=== PATIENT | male | born 1940 | race Caucasian/White ===

== ENCOUNTER 2020-01-23 07:20 | Inpatient (IN) | payer MEDICARE, OTHER ==
[~2020-01-23] VITALS: Ht 170.2 cm; Wt 71.2 kg
[~2020-01-23 07:20] MED LIST: AUGMENTIN 875875 MG PO; BISACODYL SUPP10 MG RECTAL; CENTRUM SILVER1 EAC2 PO; CLEAR EYES COOL15 ML OP; COLACE100 MG PO; COUMADIN 1MG TAB1 M1 PO; COUMADIN 2.5MG2.5 M1 PO; COUMADIN 3 MG TA3 M1 PO; DICLOXACILLIN500 MG PO; FENOFIBRATE160 MG PO; GABAPENTIN 100100 MG PO; GENTEAL MILD TO25 ML OPHTHALMIC; HUMALOG100 UNIT/1 SUBQ; LANTUS100 UNIT/M SUBQ; LEXAPRO 10 MG T10 M1 PO; MILK OF MA400 MG/5 M PO; MIRALAX17 GM PO; Milk of Magnesia PO; NORCO 5-325 TA1 EACH PO; ONDANSETRON HCL4 M2 PO; PLAVIX 75 MG TA75 M1 PO; PRILOSEC20 MG PO; PROBIOTIC1 EAC1 PO; PROTONIX40 M1 PO; RAPAFLO8 MG PO; SALINE NASAL M126 ML NASAL; SENOKOT-S1 TA2 GT; SINEMET 25-1001 EAC1 PO; SYNTHROID50 MCG PO; TRAZODONE 150150 M1 PO; TYLENOL325 MG PO; VITAMIN D 5050000 I1 PO; XANAX 0.25 MG0.25 MG PO; ZOCOR20 MG PO; ZOFRAN4 MG PO
[2020-01-23 07:28] VITALS: BP 158/69
[2020-01-23 07:55] LABS: ABSOLUTE EOSINOPHILS 0.2 thou/uL (0.0-0.7); ABSOLUTE LYMPHOCYTES 1.2 thou/uL (0.8-5.3); ABSOLUTE MONOCYTES 0.3 thou/uL (0.0-1.2); ABSOLUTE NEUTROPHILS 1.7 thou/uL (1.6-8.1); EOSINOPHILS 5.9 %; HEMATOCRIT 33.1 % (42.0-52.0); HEMOGLOBIN 11.2 gm/dL (14.0-18.0); LYMPHOCYTES 33.7 %; MCH 31.3 pg (26.0-34.0); MCHC 33.9 g/dL (28.0-37.0); MCV 92.3 fL (80.0-100.0); MONOCYTES 9.7 %; MPV 11.8 fl. (7.2-11.1); NUCLEATED RBCS 0 /100WBC; PLATELET COUNT* 94 thou/uL (150-400); POLYS 49.7 %; RBC 3.59 mil/uL (4.50-6.00); RDW-CV 13.8 % (10.5-14.5); WBC 3.5 thou/uL (4.0-11.0)
[2020-01-23 08:03] LABS: CALCIUM 8.3 mg/dL (8.5-10.1); CREATININE 1.6 mg/dL (0.6-1.3)
[2020-01-23 08:07] LABS: ALBUMIN 3.5 g/dL (3.4-5.0); TOTAL BILIRUBIN 0.4 mg/dL (<0.1-1.0); TOTAL PROTEIN 6.8 g/dL (6.4-8.2)
[2020-01-23] MEDS ORDERED: FENOFIBRATE150 MG PO (08:13)
[2020-01-23] MEDS ORDERED: NEURONTIN 300M300 M2 PO (08:14)
[2020-01-23] MEDS ORDERED: VITAMIN D210 MCG PO (08:15)
[2020-01-23] MEDS ORDERED: THERA TEARS1 EACH OPHTHALMIC (08:15)
[2020-01-23] MEDS ORDERED: GLUCOSE4 GM PO (08:16)
[2020-01-23] MEDS ORDERED: MECLIZINE HCL25 M1 PO (08:17)
--- NOTE | 2020-01-23 09:02 | NUR ---
ALISSON NOTIFIED UPON PT RETURN FROM CT. PT CONNECTED TO O2 AND MONITOR
[2020-01-23 09:30] LABS: INR 2.6; PROTIME 25.9 Seconds (9.20-11.50)
[2020-01-23 11:09] VITALS: BP 124/77
--- NOTE | 2020-01-23 11:27 | EKG ---
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: EMMY : 1940 Requested By: Lizandro Carty Order Number: [id number] MD: Ed Butler Measurements Intervals [place] Rate: 55 P: 57 OH: 233 QRS: 22 QRSD: 99 T: 40 QT: 433 QTc: 415 Interpretive Statements Sinus bradycardia artifact noted Prolonged OH interval Minimal ST depression, inferior leads Baseline wander in lead(s) II,III,aVF Compared to ECG 11/21/2016 07:35:42 First degree AV block now present ST (T wave) deviation now present Electronically Signed On 01-23-2020 11:26:34 CDT by Ed Butler [email or web address] <ELECTRONICALLY SIGNED> By: Ed Butler MD, [facility] 01/23/20 1126 Ed Butler MD, [facility] /EPI
[2020-01-23 11:45] VITALS: BP 170/67
--- NOTE | 2020-01-23 15:23 | 2DMMODE ---
[place] [address] 2 D/M-MODE ECHOCARDIOGRAM Name: RADHAJAMAAL Room: [address] IN M.Marisel.#: [id number] Admission: 01/23/20 Attend Phys: Carlton rivero Sa Discharge: Date of : 36 Date of Service: 01/23/20 1522 Report #: [id number] THIS REPORT FOR: cc: Denys Beauchamp MD, Todd A. MD Blick,Ed Gordon MD [facility] ~ APPROVED REPORT Study performed: 01/23/2020 14:13:11 EXAM: Comprehensive 2D, Doppler, and color-flow Echocardiogram Patient Location: In-Patient BSA: 1.82 HR: 60 bpm BP: 124/77 mmHg Other Information Study Quality: Fair Indications CVA/TIA Weakness Echo Enhancing Agent Indication: Rule out Shunt Agent(s) / Amount(s) Used: Agitated Saline cc 2D Dimensions IVSd: 10.88 (7-11mm) LVOT Diam: 17.54 (18-24mm) LVDd: 43.87 mm PWd: 10.29 (7-11mm) Ascending Ao: 31.22 (22-36mm) LVDs: 29.89 (25-40mm) Aortic Root: 30.06 mm Volumes Left Atrial Volume (Systole) LA ESV Index: 27.50 mL/m2 Aortic Valve AoV Peak Danial.: 0.80 m/s AO Peak Gr.: 2.58 mmHg LVOT Max P.73 mmHg AO Mean Gr.: 1.48 mmHg LVOT Mean P.44 mmHg LVOT Max V: 0.83 m/[place] [address] 2 D/M-MODE ECHOCARDIOGRAM Name: JAMAAL GARCIA Room: [address]#: [id number] Admission: 01/23/20 Attend Phys: Carlton rivero Sa Discharge: Date of : 36 Date of Service: 01/23/20 1522 Report #: [id number] AO V2 VTI: 17.88 cm LVOT Mean V: 0.56 m/s CARLY (VTI): 2.76 cm2 LVOT V1 VTI: 20.43 cm Mitral Valve E/A Ratio: 0.85 MV Decel. Time: 364.66 ms MV E Max Danial.: 1.09 m/s MV PHT: 105.75 ms MVA (PHT): 2.08 cm2 TDI E/Lateral E': 15.57 E/Medial E': 15.57 Medial E' Danial.: 0.07 m/s Lateral E' Danial.: 0.07 m/s Pulmonary Valve PV Peak Danial.: 1.04 m/s PV Peak Gr.: 4.33 mmHg Tricuspid Valve RAP Estimate: 5.00 mmHg TR Peak Gr.: 29.27 mmHg RVSP: 34.27 mmHg PA Pressure: 34.27 mmHg Left Ventricle The left ventricle is normal size. There is normal LV segmental wall motion. There is normal left ventricular wall thickness. Left ventricular systolic function is normal. The left ventricular ejection fraction is within the normal range. LVEF is 50-55%. Grade I - abnormal relaxation pattern. Right Ventricle The right ventricle is normal size. The right ventricular systolic function is normal. Atria The left atrium size is normal. Injection of bubbles documented no interatrial shunt. The right atrium size is normal. Aortic Valve The Aortic valve is sclerotic. No aortic regurgitation is present. There is no aortic valvular stenosis. Mitral Valve There is mitral annular calcification. The mitral valve is normal in structure. Trace mitral regurgitation. No evidence of mitral [place] [address] 2 D/M-MODE ECHOCARDIOGRAM Name: JAMAAL GARCIA Timmy Room: [address] IN [facility]#: [id number] Admission: 01/23/20 Attend Phys: Carlton rivero Sa Discharge: Date of : 36 Date of Service: 01/23/20 1522 Report #: [id number] Tricuspid Valve The tricuspid valve is normal in structure. Trace tricuspid regurgitation. estimated pa pressure 35 mm Hg Pulmonic Valve Pulmonic valve is not well visualized. There is no pulmonic valvular regurgitation. Great Vessels The aortic root is normal in size. IVC is normal in size and collapses >50% with inspiration. Pericardium There is no pericardial effusion. <Conclusion> LVEF is 50-55%. The Aortic valve is sclerotic. Injection of bubbles documented no interatrial shunt. <ELECTRONICALLY SIGNED> By: Ed Butler MD, FACC 01/23/20 1522 1522 1522 Ed Butler MD, FACC /INF
--- NOTE | 2020-01-23 16:24 | CON ---
[address] [address] CONSULTATION Name: RADHAAYDENTimmy Warner Room: [address] IN M.R.#: [id number] Admission: 01/23/20 Attend Phys: Carlton Henry Discharge: Date of : 36 Report #: [id number] THIS REPORT FOR: //name// cc: Denys eBauchamp MD, Todd A. MD ~ THIS REPORT FOR: //name// CC: Carlton Harley DATE OF SERVICE: 01/23/2020 CARDIOLOGY CONSULTATION HISTORY OF PRESENT ILLNESS: The patient is an 79-year-old single white male whom I was asked to see in the hospital today after he had an episode of aphasia. The patient has a long history of diabetes and hyperlipidemia. He has a long history of PAD with previous bilateral stents in his lower extremity. Because of nonhealing ulcer, he has had toes removed from both legs. He is not very active at this time. He has been in assisted living for 4 years. He uses a walker. He denies a history of heart disease. He apparently had a stress test years ago, but denies a history of chest pain, shortness of breath, palpitations, syncope. He was doing well until yesterday. He apparently had slurred speech. Denied any paralysis of an arm or leg, blurred vision. He has a long history of poor balance. PAST MEDICAL HISTORY: Significant for diabetes, hyperlipidemia, hypothyroidism. CURRENT MEDICATIONS: Includes Neurontin, fenofibrate, meclizine, Synthroid, trazodone, insulin, Sinemet, Zocor. He is on warfarin, Protonix. ALLERGIES: HE HAS PREVIOUS INTOLERANCE TO HYDROCODONE, PLAVIX, AMOXICILLIN. FAMILY HISTORY: His father had heart attack. SOCIAL HISTORY: He is , lives in assisted living. No smoking or alcohol abuse. [facility] He is retired from [employer]. REVIEW OF SYSTEMS: No history of stroke, asthma, liver disease, kidney disease, cancer, psychiatric illness, chronic skin condition. PHYSICAL EXAMINATION: GENERAL: Revealed an elderly male, lying in bed, appeared in no distress. VITAL SIGNS: He had a blood pressure of 120/70, pulse is 60. He is afebrile. HEENT: He was anicteric. Conjunctivae are pink. [place] [address] CONSULTATION Name: JAMAAL GARCIA Timmy Room: [address]#: [id number] Admission: 01/23/20 Attend Phys: Carlton rivero [place] Discharge: Date of : 38 Report #: [id number] NECK: Veins nondistended. No carotid bruits. CHEST: Clear to auscultation. CARDIOVASCULAR: Regular rate and rhythm. No murmurs. ABDOMEN: Soft. EXTREMITIES: Had no edema. Dorsalis pedis pulse cannot be palpated. SKIN: Cool and dry. NEUROLOGIC: Nonfocal. DIAGNOSTIC DATA: ECG done this morning showed sinus bradycardia, first-degree AV block, no significant ST or T-wave change. His workup included a chest x-ray that showed normal heart size, clear lung navarro. CT scan of the head was performed without contrast that shows cerebral atrophy, small vessel ischemic changes, no acute abnormalities. LABORATORY DATA: Sodium 141, BUN 25, creatinine 1.6. His troponin 0.2. TSH 4.6. INR was 2.6 on admission, white blood cell count 3.5, hematocrit 33.1. IMPRESSION AND RECOMMENDATIONS: 1. Borderline elevation of troponin. There were no ECG changes or complaints of angina. Suspect non-myocardial infarction related borderline elevation of troponin. Recommend no further cardiac evaluation. 2. Aphasia. The patient is being seen by Neurology. 3. Peripheral arterial disease. Previous stents. The patient is on warfarin. 4. Diabetes. 5. Hyperlipidemia. The patient is on a statin drug. 6. Chronic kidney disease. <ELECTRONICALLY SIGNED> By: Ed Butler MD, [facility] 01/23/20 1624 1345 1403David Heidi Butler MD, FACC /nt
--- NOTE | 2020-01-23 16:26 | NUR ---
PATIENT ARRIVED TO ROOM 229 PER CART THIS LATE IN THE AM. PATIENT IS ALERT AND ORIENTED X 4 ON ARRIVAL. PATIENT PLACED ON TELE MONITOR. VS OBTAINED. PATIENT ORIENTED TO ROOM AND PROCEDURES. NIH PERFORMED AND PATIENT'S SCORE WAS 0. PATIENT ASSISTED WITH ADLS. PATIENT TAKEN TO RADIOLOGY PER THIS AFTERNOON FOR MRI.
[2020-01-23] MEDS ORDERED: COUMADIN 4 MG TA4 M1 PO (18:17)
[2020-01-23 20:00] VITALS: BP 177/57
[2020-01-24] VITALS: BP 151/56
[2020-01-24 04:36] VITALS: BP 116/53
--- NOTE | 2020-01-24 06:36 | NUR ---
ASSUMED PT CARE AT APPROX 1930. PT IS AWAKE AND ORIENTED X4. PT IS TRACING SB ON THE RESIDENTIAL CONSTRUCTION INSTRUCTOR. ASSESSMENT DONE AND CHARTED. PT DENIES PAIN/DISCOMFORT. NIHSS-0. NO ACUTE CHANGES OVERNIGHT. HIGH FALL PRECAUTIONS IN PLACE. CALL LIGHT WITHIN REACH. HOURLY ROUNDING DONE FOR PT SAFETY.
[2020-01-24 07:20] VITALS: BP 146/52
[2020-01-24 07:32] LABS: CHOLESTEROL 111 mg/dL (<200); HDL CHOLESTEROL 37 mg/dL (>40); LDL CHOLESTEROL 48 mg/dL (<100); TRIGLYCERIDE 130 mg/dL (<150); VLDL 26 mg/dL (<40)
[2020-01-24 07:34] LABS: SERUM ASSESSMENT Clear
[2020-01-24 07:35] LABS: INR 2.3; PROTIME 23.3 Seconds (9.20-11.50)
[2020-01-24 12:00] VITALS: BP 136/60
[2020-01-24 14:02] VITALS: BP 136/60
--- NOTE | 2020-01-24 14:15 | NUR ---
PT.TO BE DISCHARGED TODAY. MRI NEG. HE LIVES AT ASSISTED LIVING AT THE [facility]. HE SAID HE USES A CANE. HE GOES TO THE DINING ROOM FOR MEALS. CM CALLED TOMASZ/THE [facility]. SHE WILL ARRANGE SOMEONE TO PICK PT UP IN ABOUT 30 MIN. TOLD HER HE WILL NEED HIS WALKER. SHE SAID THEY WILL GET IT FROM HIS APT. SPOKE WITH YARY/NURSE AT THE [facility], REQUESTING HOSPITAL STAY INFORMAITON AND MEDICATION LIST. FAXED HER FACE SHEET,H&P,NEURO CONSULT,DISCHARGE SUMMARY,MED LIST,ALL MRI AND CAROTID DOPPLER RESULTS TO [phone]. TESHA MILLIGAN NOTIFIED.
[2020-01-25 02:07] LABS: GLYCOHEMOGLOBIN (HGB A1C) 6.7 % (4.8-5.6)
--- NOTE | 2020-02-01 12:39 | CON ---
[address] [address] CONSULTATION Name: RADHAAYDENTimmy Warner Room: [address] IN M.R.#: [id number] Admission: 01/23/20 Attend Phys: Carlton Henry Discharge: 01/24/20 Date of : 36 Report #: [id number] THIS REPORT FOR: //name// cc: Denys Beauchamp MD, Todd A. MD ~ THIS REPORT FOR: //name// CC: Carlton Nelson DATE OF SERVICE: 01/23/2020 HISTORY OF PRESENT ILLNESS: This is an 79-year-old male patient who was seen by me for the possibility of stroke versus TIA. The patient was noticed to have some speech difficulty. There was some question of weakness on the right side. The patient's symptoms subsequently resolved. The patient was outside the window for any TPA. The patient is also on Coumadin with therapeutic INR. REVIEW OF SYSTEMS: Indicate the patient is a diabetic. It looks like his blood sugar was normal when it happens. He does have a history of vascular insufficiency. He had the amputations of his toes. He also had stents put in his lower extremity. He denies any prior history of stroke. He said he has Parkinson's disease, but his history is not very clear in that regard. He indicated that he did not see any neurologist, but he has been on carbidopa/levodopa from the place where he resides. His memory is not too bad, but he walks with a walker and has done it for some time. That was his relevant 14-point review of system. PAST MEDICAL HISTORY: Negative for any stroke. FAMILY HISTORY: Also negative for any stroke. SOCIAL HISTORY: The patient does not smoke or drink any alcohol. PHYSICAL EXAMINATION: Indicate the patient is alert, responsive, able to follow simple and complex command. His memory is reasonable for the patient's age. His cranial nerve examination 2-12 looks unremarkable. He does have an amputation, but otherwise neuromuscular examination looks symmetrical. His reflexes does appear to be present. There is no meningeal sign. There is no cerebellar sign. I could not look at the fundus. His pulses are also difficult to feel. His blood pressure is 124/77, respirations 14, and pulse is 60. LABORATORY DATA: Indicate a white count of 3.5 and INR of 2.6. He did have a CT scan of the head, which appear unremarkable. He [place] [address] CONSULTATION Name: JAMAAL GARCIA Timmy Room: [address]#: [id number] Admission: 01/23/20 Attend Phys: Carlton Henry Discharge: 01/24/20 Date of : 38 Report #: [id number] IMPRESSION: This patient does appear to have either TIA or stroke. He had right-sided symptoms even about 2 weeks ago, which were nonspecific. He needs further workup. He has no contraindication for MRI. So, I discussed with him that we will go ahead and proceed with an MRI and see if it demonstrate any stroke. He does have a history of Parkinson's disease. I am not sure how established the diagnosis is in this patient. He does not have much tremor on my examination, but you may not have any tremor if the person is on Sinemet. I told him we will not address that question for the time being. He can come as an outpatient if that need to be addressed. He does have some other abnormalities like his WBC count is low and his platelet count is low. I will defer to the admitting doctor if anything need to be done in that regard. Time spent about 50 minutes, majority counseling and coordinating. We will await this workup. I will also get an echocardiogram done in this patient. <ELECTRONICALLY SIGNED> By: Al Joshi MD 02/01/20 1239 1313 1332Phermelindo Joshi MD /nt
== END 2020-01-24 15:18 | disposition home or self-care (01) | DRG 69 ==
LOC: M.ERS 07:20 → M.2W 09:17 → M.TBA-ER 09:17 → M.2W 12:36
PROVIDERS: Family Medicine; Internal Medicine Cardiovascular Disease; ADMIT Family Medicine; ATTEND Family Medicine
DX: G45.9 Transient cerebral ischemic attack, unspecified (principal); N17.9 Acute kidney failure, unspecified; D61.818 Other pancytopenia; R47.01 Aphasia; E11.40 Type 2 diabetes mellitus with diabetic neuropathy, unspecified; G20 Parkinson's disease; E11.22 Type 2 diabetes mellitus with diabetic chronic kidney disease; E78.5 Hyperlipidemia, unspecified; N18.9 Chronic kidney disease, unspecified; E11.51 Type 2 diabetes mellitus with diabetic peripheral angiopathy without gangrene; E03.9 Hypothyroidism, unspecified; Z79.01 Long term (current) use of anticoagulants; Z79.4 Long term (current) use of insulin; Z79.899 Other long term (current) drug therapy; Z91.048 Other nonmedicinal substance allergy status; Z86.718 Personal history of other venous thrombosis and embolism; Z82.49 Family history of ischemic heart disease and other diseases of the circulatory system; Z83.3 Family history of diabetes mellitus; Z82.3 Family history of stroke

== ENCOUNTER 2021-02-24 19:39 | Emergency (ER) | payer MEDICARE, OTHER ==
[~2021-02-24] VITALS: Ht 170.2 cm; Wt 72.2 kg
[~2021-02-24 19:39] MED LIST changes: +COUMADIN 4 MG TA4 M1 PO; +FENOFIBRATE150 MG PO; +GLUCOSE4 GM PO; +MECLIZINE HCL25 M1 PO; +NEURONTIN 300M300 M2 PO; +THERA TEARS1 EACH OPHTHALMIC; +VITAMIN D210 MCG PO
[2021-02-24] MEDS ORDERED: XARELTO15 MG PO (20:15)
[2021-02-24] MEDS ORDERED: TUMS200 MG PO (20:16)
[2021-02-24] MEDS ORDERED: SIMETHICON CHEW80 M1 PO (20:17)
[2021-02-24 22:25] VITALS: BP 197/84
== END 2021-02-24 22:26 | disposition home or self-care (01) ==
LOC: M.ERS 19:39
DX: S01.01XA Laceration without foreign body of scalp, initial encounter (principal); E03.9 Hypothyroidism, unspecified; Z88.8 Allergy status to other drugs, medicaments and biological substances; Z79.84 Long term (current) use of oral hypoglycemic drugs; Z79.899 Other long term (current) drug therapy; X50.1XXA Overexertion from prolonged static or awkward postures, initial encounter; Y93.89 Activity, other specified; Y92.89 Other specified places as the place of occurrence of the external cause; Y99.8 Other external cause status

== ENCOUNTER 2021-04-13 07:39 | Inpatient (IN) | payer MEDICARE, OTHER ==
[~2021-04-13] VITALS: Ht 152.4 cm; Wt 74.4 kg
[~2021-04-13 07:39] MED LIST changes: +SIMETHICON CHEW80 M1 PO; +TUMS200 MG PO; +XARELTO15 MG PO
[2021-04-13 07:44] VITALS: BP 123/75
[2021-04-13] MEDS ORDERED: DORYX MPC120 MG PO (08:09)
[2021-04-13] MEDS ORDERED: PROSCAR 5MG TABL5 MG PO (08:10)
[2021-04-13] MEDS ORDERED: ACID CONTROLLER20 MG PO (08:10)
[2021-04-13] MEDS ORDERED: HYDROCODON-ACE1 EAC7 PO (08:11)
[2021-04-13] MEDS ORDERED: DESYREL150 MG PO (08:12)
[2021-04-13 08:15] LABS: ABSOLUTE BASOPHILS 0.1 thou/uL (0.0-0.2); ABSOLUTE LYMPHOCYTES 1.3 thou/uL (0.8-5.3); ABSOLUTE MONOCYTES 0.6 thou/uL (0.0-1.2); ABSOLUTE NEUTROPHILS 7.2 thou/uL (1.6-8.1); BASOPHILS 0.6 %; EOSINOPHILS 0.2 %; HEMATOCRIT 29.9 % (42.0-52.0); HEMOGLOBIN 9.8 gm/dL (14.0-18.0); LYMPHOCYTES 13.7 %; MCH 30.5 pg (26.0-34.0); MCHC 32.7 g/dL (28.0-37.0); MCV 93.3 fL (80.0-100.0); MONOCYTES 6.9 %; MPV 12.4 fl. (7.2-11.1); NUCLEATED RBCS 0 /100WBC; PLATELET COUNT* 138 thou/uL (150-400); POLYS 78.6 %; RDW-CV 14.5 % (10.5-14.5); WBC 9.2 thou/uL (4.0-11.0)
[2021-04-13 08:20] LABS: CALCIUM 7.9 mg/dL (8.5-10.1); CREATININE 3.7 mg/dL (0.6-1.3)
[2021-04-13 08:34] LABS: ALBUMIN 3.3 g/dL (3.4-5.0); TOTAL BILIRUBIN 0.4 mg/dL (<0.1-1.0); TOTAL PROTEIN 6.4 g/dL (6.4-8.2)
[2021-04-13 09:30] VITALS: BP 127/80
[2021-04-13 10:55] LABS: CALCIUM 7.9 mg/dL (8.5-10.1); CREATININE 3.6 mg/dL (0.6-1.3); POTASSIUM 5.2 mmol/L (3.5-5.1)
[2021-04-13 11:14] LABS: INR 1.3; PROTIME 13.3 Seconds (9.20-11.50)
[2021-04-13 12:00] VITALS: BP 125/86
[2021-04-13] MEDS ORDERED: CARBIDOPA-LEVO1 EAC9 PO (14:00)
--- NOTE | 2021-04-13 14:26 | EKG ---
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: LINDA : 1940 Requested By: Lizandro Carty Order Number: [id number] MD: Oleg Munoz Measurements Intervals [place] Rate: 40 P: 0 RI: 188 QRS: 58 QRSD: 91 T: 117 QT: 502 QTc: 410 Interpretive Statements Sinus node dysfunction Junctional escape atrial premature complex Borderline repolarization abnormality Compared to ECG 01/23/2020 07:32:06 Atrial premature complex(es) now present First degree AV block no longer present ST (T wave) deviation no longer present Electronically Signed On 04-13-2021 14:25:50 CDT by Oleg Munoz [email or web address] <ELECTRONICALLY SIGNED> By: Oleg Munoz MD, [facility] 04/13/21 1425 1 Oleg Munoz MD, [facility] /EPI
[2021-04-13 16:00] VITALS: BP 181/78
[2021-04-14] VITALS (7 sets, daily range): BP systolic 111–153; BP diastolic 40–63
--- NOTE | 2021-04-14 00:18 | NUR ---
PT ALERT ORIENTED. FUSSY AT TIMES. INITAL ASSESSMENT PT UNABLE TO VOID. PT STOOD, WATER RAN. PT BLADDER SCANNED. SHOWED 550ML. DR NOTIFIED. ORDER TO STRAIGHT CATH WITH 500 ML RETURN OF CLEAR YELLOW. SALES MANAGEMENT INTERN TRACING PACED. L ARM SLING PLACED ON PT. PT TEACHING RE NOT RAISING L ARM. L CHEST INSERTION SITE ANEESH C/D/I.
[2021-04-14 03:51] LABS: HEMATOCRIT 27.7 % (42.0-52.0); HEMOGLOBIN 8.9 gm/dL (14.0-18.0); MCH 29.8 pg (26.0-34.0); MCHC 32.2 g/dL (28.0-37.0); MCV 92.4 fL (80.0-100.0); MPV 11.7 fl. (7.2-11.1); RDW-CV 14.9 % (10.5-14.5); WBC 7.9 thou/uL (4.0-11.0)
[2021-04-14 04:08] LABS: CALCIUM 7.8 mg/dL (8.5-10.1); CREATININE 2.7 mg/dL (0.6-1.3); POTASSIUM 4.6 mmol/L (3.5-5.1)
--- NOTE | 2021-04-14 05:43 | NUR ---
A SECOND ATTEMPT WAS MADE TO TRY TO GET PT TO VOID. BLADDER SCAN 565ML. STRAIGHT CATH 675ML.
--- NOTE | 2021-04-14 11:34 | CON ---
[address] [address] CONSULTATION Name: JAMAAL GARCIA Room: [address] IN M.R.#: [id number] Admission: 04/13/21 Attend Phys: Radha Reynolds Discharge: Date of : 38 Report #: [id number] THIS REPORT FOR: cc: Denys Beauchamp MD, Todd A. MD Liston, Michael J. MD FAC ~ cc: Denys Beauchamp MD DATE OF CONSULTATION: 04/13/2021 CARDIOLOGY CONSULT INDICATION: Heart block. HISTORY OF PRESENT ILLNESS: The patient is a very pleasant 80-year-old gentleman who was noted to have bradycardia this morning by his childcare aide. An EKG shows what appears to be sick sinus syndrome with very slow sinus node rate and underlying junctional escape with heart rates in the low 30s. The patient has weakness and lightheadedness and dizziness. He is not having chest pain. He is without other cardiac complaint. He has no prior cardiac history. He does have a history of peripheral vascular disease with previous stenting to his lower extremities and some toe amputations due to nonhealing ulcers remotely. He is not having any problems with this at present. He is chronically anticoagulated. PAST MEDICAL HISTORY: Hyperlipidemia, type 2 diabetes mellitus, peripheral vascular disease, hypothyroidism, peripheral neuropathy, history of DVT. HOME MEDICATIONS: Tylenol p.r.n., Sinemet 25/100 t.i.d., Artificial Tears daily, Colace 100 mg b.i.d., doxycycline 100 mg daily, vitamin D2 50,000 units weekly, Pepcid 20 mg daily, fenofibrate 145 mg daily, Proscar 5 mg daily, gabapentin 300 mg at bedtime, hydrocodone/acetaminophen p.r.n., Lantus 14 units subQ daily, Synthroid 75 mcg daily, Antivert 25 mg q. 6 hours, Centrum Silver tablet 1 daily, Protonix 40 mg daily, MiraLax 17 grams daily, Xarelto 15 mg at dinnertime, Senokot-S 2 tablets at bedtime, Rapaflo 8 mg daily, simethicone 80 mg every evening, simvastatin 20 mg at bedtime, trazodone 150 mg at bedtime. ALLERGIES: LANOLIN, ALCOHOL, NEOMYCIN, FORMALDEHYDE. SOCIAL HISTORY: The patient resides in [facility] care. There is no alcohol or tobacco use. FAMILY HISTORY: Noncontributory. PHYSICAL EXAMINATION: [place] [address] CONSULTATION Name: JAMAAL GARCIA Room: [address]#: [id number] Admission: 04/13/21 Attend Phys: Radha Reynolds Discharge: Date of : 38 Report #: [id number] VITAL SIGNS: Blood pressure 127/80, pulse is in the low 30s. GENERAL: This is a pleasant elderly male who is in no distress. Mood and affect appropriate. HEENT: The patient is wearing glasses. Extraocular muscles intact. Mucous membranes moist. NECK: Shows no jugular venous distention. CHEST: Reveals clear lung navarro. CARDIAC: Reveals bradycardia without obvious gallop or murmur. ABDOMEN: Reveals normal bowel sounds. The abdomen is soft and nontender. EXTREMITIES: Show no edema. DIAGNOSTIC DATA: A 12-lead EKG shows what appears to be a sick sinus with a junctional escape in the 30s. LABORATORY DATA: Reviewed. Sodium 138, potassium 6.0, chloride 105, bicarb 19, BUN 46, creatinine 3.7, serum glucose 336. LFTs within normal limits. Troponin high sensitivity 2146. NT-proBNP 3719. White blood cell count 9.2, hemoglobin 9.8, platelet count 138,000. Chest x-ray: No acute radiographic abnormality. IMPRESSION AND RECOMMENDATIONS: 1. Sick sinus node with profound bradycardia with symptoms of fatigue, lightheadedness and dizziness. Plan, permanent pacemaker placement. 2. Peripheral vascular disease, presently stable. 3. Dyslipidemia. Continue current statin agent. Check fasting lipid profile. 4. Acute renal failure likely due to hypoperfusion from bradycardia. Hopefully, will improve with improved heart rate. 5. Hyperkalemia. Corrective measures have been performed including D50 and insulin. Followup labs pending. 6. Acute on chronic diastolic heart failure. Should improve with improved heart rate after pacemeker placement. <ELECTRONICALLY SIGNED> By: Oleg Munoz MD, FACC 04/14/21 1134 0913 0926Micbrittney Munoz MD, FACC /nt
--- NOTE | 2021-04-14 15:41 | CARD ---
[address] [place] [address] [address] CARDIAC CATH REPORT Name: JAMAAL GARCIA Timmy Room: [address] IN [facility]#: [id number] Admission: 04/13/21 Attend Phys: Radha Reynolds Discharge: Date of : 38 Report #: [id number] THIS REPORT FOR: cc: Denys Beauchamp MD, Todd A. MD Liston, Michael J. MD [facility] ~ APPROVED REPORT Study performed: 04/13/2021 11:17:16 Patient Status: In-Patient Room #: Event Personnel: Ruthy Mcmillan RN RN, Rosalba Verduzco, Keaton Christianson RTR Scrub, Oleg Munoz Parts Clerk Plant Maintenance Exam: Insertion of Dual Chamber Permanent Pacemaker The patient is a 80 year-old male with a history of . Conscious Sedation Start time: 1209 End Time: 1241 Fentanyl 25 mcg Versed 1 mg Implanted Devices: Biotronik Edora 8 DRT, model #836877, serial #[id number] dual-chamber pulse generator. Biotronik Solia S 53, model #418634, serial #[id number] ventricularly. Biotronik Solia S 60, model #404376, serial #[id number] atrial lead. Procedure The patient underwent informed consent. We discussed the details of the procedure including the risks, which include, but not limited to bleeding, infection, vascular damage, cardiac perforation, and pneumothorax. He understood these risks and was willing to proceed. As such, he was brought to the EP/Cardiac Catheterization laboratory in a fasting and sedated state and prepped and draped in a sterile fashion, received IV antibiotics prior to initiation of the procedure and a venogram was performed showing patency of the left axillary vein. The patient underwent conscious sedation, with no related complications. The patient was brought to the EP/Cardiac Catheterization laboratory and the left chest and shoulder were prepped and draped in a sterile manner. During this case, Fluoroscopy [place] [address] CARDIAC CATH REPORT Name: RADHAJAMAAL Room: [address]#: [id number] Admission: 04/13/21 Attend Phys: Radha Reynolds Discharge: Date of : 38 Report #: [id number] imaging. IV conscious sedation was used throughout procedure with appropriate monitoring and was performed in the presence of a registered nurse who was an independent trained observer other than the physician performing the procedure. The left subclavian region was infiltrated with 2% Lidocaine subcutaneous anesthesia. A transverse incision was made in the left upper chest cavity. The subcutaneous pocket was formed via blunt dissection. Percutaneous venous access was achieved and an introducer sheath was inserted into the left Subclavian vein. Sheaths were positions using the modified Seldinger technique Through the introducer sheaths the atrial and ventricular lead wires were positioned in the right atrial appendage and right ventricular apex respectively. Utilizing fluoroscopic guidance, the atrial and ventricular lead wires were advanced over the wires and positioned in the right atria and right ventricle respectively. Capturing and sensing thresholds were verified. Electrode Parameters P Wave: 0.8 mV R Wave: 10.1 mV Atrial Threshold: 1 V at 0.40 ms Ventricular Threshold: 1 V at 0.40 ms Atrial Resistance: 485 ohms Ventricular Resistance: 569 ohms Dual Chamber The atrial and ventricular leads were then secured using 0 silk sutures. The subcutaneous pocket was irrigated with ancef antibiotic solution.The atrial and ventricular leads were attached to the appropriate receptacles on the pulse generator and set screws firmly tightened to insure adequate contact and stability. The lead and pulse generator were placed into the subcutaneous pocket. Sharp and sponge counts were confirmed to be correct. At this time the pocket was closed subcutaneously with a 2.0 Vicryl and the skin was closed with a 4.0 Vicryl. The operative site was dressed in sterile fashion with steri strips and the patient was transferred to the floor in stable condition. Complications The patient tolerated the procedure well and there were no complications [place] [address] CARDIAC CATH REPORT Name: JAMAAL GARCIA Room: [address]#: [id number] Admission: 04/13/21 Attend Phys: Radha Reynolds Discharge: Date of : 38 Report #: [id number] Findings Specimens Removed: No Estimated Blood Loss: 0 Conclusion 1. Sinus node dysfunction with symptomatic bradycardia. 2. Successful placement of a dual-chamber pacemaker with atrial and ventricular lead placement. Recommendations 1. Follow-up site check in 1 week. 2. Follow-up device interrogation in 1 month. <ELECTRONICALLY SIGNED> By: Oleg Munoz MD, FACC 04/14/21 1540 [id number] Munoz MD, FACC /INF
--- NOTE | 2021-04-14 15:43 | EKG ---
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: [place] : 1940 Requested By: Oleg Munoz Order Number: [id number] Reading MD: Oleg Munoz Measurements Intervals [place] Rate: 67 P: 0 LA: 162 QRS: -65 QRSD: 116 T: 83 QT: 419 QTc: 443 Interpretive Statements Atrial-ventricular dual-paced rhythm No further analysis attempted due to paced rhythm Compared to ECG 04/13/2021 07:42:28 Atrial premature complex(es) no longer present Electronically Signed On 04-14-2021 15:43:21 CDT by Oleg Munoz [email or web address] <ELECTRONICALLY SIGNED> By: Oleg Munoz MD, FACC 04/14/21 1543 1006 1006 Oleg Munoz MD, FAC /EPI
[2021-04-15] VITALS: BP 120/48
[2021-04-15 04:22] VITALS: BP 121/53
[2021-04-15 04:44] LABS: CHOLESTEROL 67 mg/dL (<200); HDL CHOLESTEROL 28 mg/dL (>40); LDL CHOLESTEROL 15 mg/dL (<100); TC:HDL 2.4 Ratio (Not establshd); TRIGLYCERIDE 124 mg/dL (<150); VLDL 25 mg/dL (<40)
[2021-04-15 04:45] LABS: SERUM ASSESSMENT CLEAR
--- NOTE | 2021-04-15 05:56 | NUR ---
ASSUMED CARE OF PT AFTER REPORT AT 1930. PT A&OX4. VSS. PHYICAL ASSESSMENT COMPLETED AND CHARTED. PT ON RA. PT TRACING SR/1ST DEG/BBB/AV PACED ON TELE. PT UP WITH 1 ASSIST TO RESTROOM. PT DENIES ANY PAIN. PT ABLE TO SLEEP WELL ON BED. FALL PRECAUTIONS IN PLACE. CALL LIGHT WITHIN REACH.
[2021-04-15 09:00] VITALS: BP 130/57
[2021-04-15 13:49] VITALS: BP 130/57
--- NOTE | 2021-04-15 15:41 | NUR ---
PT. AOX4, VSS, L [facility] SITE CDI, MINI, NO DRAINAGE NOTED. CALL LIGHT AND PERSONAL BELONGINGS PLACED WITHIN REACH. DC ORDERS RECEIVED. DC PACKET PROVIDED TO PT AND EXPLAINED TO PT AND DAUGHTER, BOTHE VERBALIZED UNDERSTANDING. REPORT CALLED TO LAWANDA PARKINSON OF [facility]. PT. LEFT BY WHEELCHAIR, IN STABLE CONDITION AND PICKED UP BY DAUGHTER FROM ER.
== END 2021-04-15 14:45 | disposition home or self-care (01) | DRG 242 ==
LOC: M.ERS 07:39 → M.2W 08:20 → M.TBA-ER 08:20 → M.2W 09:37
PROVIDERS: Family Medicine; Internal Medicine Cardiovascular Disease; ADMIT Internal Medicine; ATTEND Internal Medicine
PROC: 0JH606Z Insertion of Pacemaker, Dual Chamber into Chest Subcutaneous Tissue and Fascia, Open Approach (ICD-10-PCS; principal; 2021-04-13)
PROC: B51N1ZZ Fluoroscopy of Left Upper Extremity Veins using Low Osmolar Contrast (ICD-10-PCS; principal; 2021-04-13)
PROC: 02H63JZ Insertion of Pacemaker Lead into Right Atrium, Percutaneous Approach (ICD-10-PCS; principal; 2021-04-13)
PROC: 02HK3JZ Insertion of Pacemaker Lead into Right Ventricle, Percutaneous Approach (ICD-10-PCS; principal; 2021-04-13)
DX: I49.5 Sick sinus syndrome (principal); N17.0 Acute kidney failure with tubular necrosis; I21.4 Non-ST elevation (NSTEMI) myocardial infarction; I50.33 Acute on chronic diastolic (congestive) heart failure; I44.2 Atrioventricular block, complete; Z20.822 Contact with and (suspected) exposure to COVID-19; E03.9 Hypothyroidism, unspecified; E87.5 Hyperkalemia; E78.5 Hyperlipidemia, unspecified; E11.51 Type 2 diabetes mellitus with diabetic peripheral angiopathy without gangrene; E11.42 Type 2 diabetes mellitus with diabetic polyneuropathy; N40.0 Benign prostatic hyperplasia without lower urinary tract symptoms; Z95.820 Peripheral vascular angioplasty status with implants and grafts; Z88.1 Allergy status to other antibiotic agents; Z88.8 Allergy status to other drugs, medicaments and biological substances; Z86.718 Personal history of other venous thrombosis and embolism

== ENCOUNTER → 2021-04-18 | Outpatient (CLI) | payer MEDICARE, OTHER ==
[~2021-04-18] MED LIST changes: +ACID CONTROLLER20 MG PO; +CARBIDOPA-LEVO1 EAC9 PO; +DESYREL150 MG PO; +DORYX MPC120 MG PO; +HYDROCODON-ACE1 EAC7 PO; +PROSCAR 5MG TABL5 MG PO
[2021-04-18 15:26] LABS: ABSOLUTE BASOPHILS 0.1 thou/uL (0.0-0.2); ABSOLUTE EOSINOPHILS 0.2 thou/uL (0.0-0.7); ABSOLUTE LYMPHOCYTES 0.9 thou/uL (0.8-5.3); ABSOLUTE MONOCYTES 0.5 thou/uL (0.0-1.2); ABSOLUTE NEUTROPHILS 3.7 thou/uL (1.6-8.1); EOSINOPHILS 4.2 %; HEMATOCRIT 27.6 % (42.0-52.0); HEMOGLOBIN 9.2 gm/dL (14.0-18.0); LYMPHOCYTES 16.3 %; MCH 30.6 pg (26.0-34.0); MCHC 33.5 g/dL (28.0-37.0); MCV 91.3 fL (80.0-100.0); MONOCYTES 9.7 %; MPV 9.4 fl. (7.2-11.1); NUCLEATED RBCS 0 /100WBC; PLATELET COUNT* 144 thou/uL (150-400); POLYS 68.8 %; RBC 3.02 mil/uL (4.50-6.00); RDW-CV 14.8 % (10.5-14.5); WBC 5.4 thou/uL (4.0-11.0)
[2021-04-18 15:37] LABS: CALCIUM 8.7 mg/dL (8.5-10.1); CREATININE 2.1 mg/dL (0.6-1.3); POTASSIUM 4.4 mmol/L (3.5-5.1)
== END ==
LOC: M.LAB 14:50
PROVIDERS: ATTEND Internal Medicine Cardiovascular Disease
DX: R60.0 Localized edema (principal)

== ENCOUNTER 2021-05-15 16:24 | Emergency (ER) | payer MEDICARE, OTHER ==
[~2021-05-15] VITALS: Ht 170.2 cm; Wt 68.0 kg
[2021-05-15 20:05] VITALS: BP 150/78
== END 2021-05-15 20:07 | disposition home or self-care (01) ==
LOC: M.ERS 16:24
DX: S16.1XXA Strain of muscle, fascia and tendon at neck level, initial encounter (principal); S00.03XA Contusion of scalp, initial encounter; S00.91XA Abrasion of unspecified part of head, initial encounter; M25.511 Pain in right shoulder; K21.9 Gastro-esophageal reflux disease without esophagitis; E11.40 Type 2 diabetes mellitus with diabetic neuropathy, unspecified; Z79.82 Long term (current) use of aspirin; Z79.899 Other long term (current) drug therapy; Z88.8 Allergy status to other drugs, medicaments and biological substances; Z88.1 Allergy status to other antibiotic agents; W18.30XA Fall on same level, unspecified, initial encounter; Y93.89 Activity, other specified; Y92.89 Other specified places as the place of occurrence of the external cause; Y99.8 Other external cause status

== ENCOUNTER → 2021-10-04 | Outpatient (CLI) | payer MEDICARE, OTHER ==
[2021-10-04 12:04] LABS: ABSOLUTE EOSINOPHILS 0.3 thou/uL (0.0-0.7); ABSOLUTE LYMPHOCYTES 1.2 thou/uL (0.8-5.3); ABSOLUTE MONOCYTES 0.4 thou/uL (0.0-1.2); ABSOLUTE NEUTROPHILS 2.2 thou/uL (1.6-8.1); BASOPHILS 1.2 %; EOSINOPHILS 6.3 %; HEMOGLOBIN 9.5 gm/dL (14.0-18.0); LYMPHOCYTES 29.7 %; MCHC 32.7 g/dL (28.0-37.0); MCV 91.9 fL (80.0-100.0); MONOCYTES 9.4 %; MPV 9.8 fl. (7.2-11.1); NUCLEATED RBCS 0 /100WBC; PLATELET COUNT* 146 thou/uL (150-400); POLYS 53.4 %; RBC 3.15 mil/uL (4.50-6.00); RDW-CV 13.7 % (10.5-14.5); WBC 4.1 thou/uL (4.0-11.0)
[2021-10-04 12:21] LABS: ALBUMIN 2.9 g/dL (3.4-5.0); ALKALINE PHOSPHATASE 50 U/L (46-116); ANION GAP 8 mmol/L (7-16); BUN 39 mg/dL (7-18); CALCIUM 8.4 mg/dL (8.5-10.1); CHLORIDE 108 mmol/L (98-107); CO2 26 mmol/L (21-32); GLUCOSE 196 mg/dL (70-99); POTASSIUM 4.4 mmol/L (3.5-5.1); SGOT 20 U/L (15-37); SGPT < 6 U/L (30-65); SODIUM 142 mmol/L (136-145); TOTAL BILIRUBIN 0.3 mg/dL (<0.1-1.0); TOTAL PROTEIN 6.4 g/dL (6.4-8.2)
[2021-10-04 13:12] LABS: ESR (SEDRATE) 28 mm/hr (0-20)
[2021-10-05 02:06] LABS: GLYCOHEMOGLOBIN (HGB A1C) 7.7 % (4.8-5.6)
== END ==
LOC: M.WC 10:05
PROVIDERS: ATTEND Family Medicine
DX: T87.89 Other complications of amputation stump (principal); E11.621 Type 2 diabetes mellitus with foot ulcer; L97.526 Non-pressure chronic ulcer of other part of left foot with bone involvement without evidence of necrosis; E11.51 Type 2 diabetes mellitus with diabetic peripheral angiopathy without gangrene; E11.40 Type 2 diabetes mellitus with diabetic neuropathy, unspecified; E03.9 Hypothyroidism, unspecified; E78.5 Hyperlipidemia, unspecified; I10 Essential (primary) hypertension; N40.0 Benign prostatic hyperplasia without lower urinary tract symptoms; K21.9 Gastro-esophageal reflux disease without esophagitis; M19.90 Unspecified osteoarthritis, unspecified site; F32.9 Major depressive disorder, single episode, unspecified; F41.9 Anxiety disorder, unspecified; Z86.718 Personal history of other venous thrombosis and embolism; Z89.411 Acquired absence of right great toe; Z89.412 Acquired absence of left great toe; Z79.4 Long term (current) use of insulin; Y83.5 Amputation of limb(s) as the cause of abnormal reaction of the patient, or of later complication, without mention of misadventure at the time of the procedure

== ENCOUNTER → 2021-10-07 | Outpatient (CLI) | payer MEDICARE, OTHER | LOC: M.WC 10:50 | PROVIDERS: ATTEND Podiatrist Foot & Ankle Surgery | DX: E11.621 Type 2 diabetes mellitus with foot ulcer (principal); L97.526 Non-pressure chronic ulcer of other part of left foot with bone involvement without evidence of necrosis; L03.032 Cellulitis of left toe; E11.69 Type 2 diabetes mellitus with other specified complication; M86.072 Acute hematogenous osteomyelitis, left ankle and foot; E11.42 Type 2 diabetes mellitus with diabetic polyneuropathy; E11.51 Type 2 diabetes mellitus with diabetic peripheral angiopathy without gangrene; E03.9 Hypothyroidism, unspecified; E78.5 Hyperlipidemia, unspecified; I10 Essential (primary) hypertension; N40.0 Benign prostatic hyperplasia without lower urinary tract symptoms; K21.9 Gastro-esophageal reflux disease without esophagitis; M19.90 Unspecified osteoarthritis, unspecified site; F32.9 Major depressive disorder, single episode, unspecified; F41.9 Anxiety disorder, unspecified; Z86.718 Personal history of other venous thrombosis and embolism; Z89.411 Acquired absence of right great toe; Z89.412 Acquired absence of left great toe; Z79.4 Long term (current) use of insulin ==